=== PATIENT | female | born 1935 | race Caucasian/White ===

== ENCOUNTER 2017-12-31 21:37 | Emergency (ER) | payer OTHER, MEDICARE ==
[~2017-12-31] VITALS: Ht 167.6 cm; Wt 76.7 kg
--- NOTE | ~2017-12-31 | EKG ---
[place] [address] [facility] [place] [address] ELECTROCARDIOGRAM REPORT Name: MARLINE HOPKINS [id number] Admission: 12/31/17 Attend Phys: Discharge: 01/01/18 Date of : 37 Report #: [id number] THIS REPORT FOR: //name// [facility] ED Test Date: 2017-12-31 Test Time: 21:45:55 Pat Name: MARLINE LEOANRD Department: Room: Gender: F Resident Program Specialist: LAUREL : [id number] Requested By: Bereket Ryan Order Number: [id number] MD: Shaun Braga Measurements Intervals [place] Rate: 89 P: 67 [place]: 188 QRS: -37 QRSD: 96 T: 54 QT: 385 QTc: 469 Interpretive Statements Sinus rhythm Atrial premature complexes Abnormal R-wave progression, late transition Left ventricular hypertrophy No previous ECG available for comparison Electronically Signed On 01-01-2018 7:47:20 CDT by Shaun Braga [email or web address] <ELECTRONICALLY SIGNED> By: Shaun Braga MD, [facility] 01/01/18 [id number] Shaun Braga MD, FACC /EPI
[2017-12-31 21:59] LABS: EOSINOPHILS 3.4 % (0.0-3.0); HEMATOCRIT 43.1 % (37.0-47.0); HEMOGLOBIN 14.6 gm/dL (12.0-15.0); MCH 29.6 pg (26.0-34.0); MCHC 33.9 g/dL (28.0-37.0); MCV 87.3 fL (80.0-100.0); PLATELET COUNT 187 thou/uL (150-400); POLYS 70.6 % (36.0-66.0); RBC 4.93 mil/uL (4.20-5.00); RDW 14.7 % (10.5-14.5); WBC 7.1 thou/uL (4.0-11.0)
[2017-12-31 22:09] LABS: ANION GAP 8 mmol/L (7-16); BUN 14 mg/dL (7-18); CALCIUM 9.6 mg/dL (8.5-10.1); CHLORIDE 104 mmol/L (98-107); CO2 26 mmol/L (21-32); CREATININE 0.6 mg/dL (0.6-1.0); GLUCOSE 150 mg/dL (74-106); POTASSIUM 3.5 mmol/L (3.5-5.1); SODIUM 138 mmol/L (136-145)
[2017-12-31 22:19] LABS: ALBUMIN 3.4 g/dL (3.4-5.0); LIPASE 246 U/L (73-393); SGOT 23 U/L (15-37); SGPT 22 U/L (30-65); TOTAL BILIRUBIN 0.4 mg/dL (<0.1-1.0); TOTAL PROTEIN 7.2 g/dL (6.4-8.2); TROPONIN-I < 0.04 ng/mL (<0.06)
[2017-12-31 22:58] LABS: URINE BILIRUBIN NEGATIVE (Negative); URINE BLOOD 1+ (Negative); URINE CLARITY SL CLOUDY; URINE COLOR STRAW; URINE GLUCOSE-RANDOM* TRACE (Negative); URINE KETONES TRACE (Negative); URINE LEUKOCYTES-REFLEX NEGATIVE (Negative); URINE NITRITE-REFLEX NEGATIVE (Negative); URINE PROTEIN (DIPSTICK) NEGATIVE (Negative); URINE UROBILINOGEN 0.2 E.U./dl (0.2-1.0)
[2017-12-31] MEDS ORDERED: NORVASC5 MG PO (23:08)
[2017-12-31] MEDS ORDERED: NEURONTIN600 MG PO (23:08)
[2017-12-31] MEDS ORDERED: CELEBREX 200 M200 M1 PO (23:09)
[2017-12-31] MEDS ORDERED: ZYRTEC10 M5 PO (23:09)
[2017-12-31] MEDS ORDERED: VENLAFAXINE H37.5 M2 PO (23:09)
[2017-12-31] MEDS ORDERED: ASPIR 8181 MG PO (23:09)
[2017-12-31] MEDS ORDERED: ATIVAN0.5 MG PO (23:10)
[2017-12-31] MEDS ORDERED: XALATAN2.5 ML OPHTHALMIC (23:10)
[2017-12-31] MEDS ORDERED: VITAMIN D2000 UNIT PO (23:10)
[2017-12-31] MEDS ORDERED: PRIVIGEN50 ML IV (23:12)
[2017-12-31 23:15] LABS: CASTS None Seen /LPF (None Seen); SQUAMOUS 0-3 Few /LPF (0-3); URINE WBC-REFLEX 0-5 Rare /HPF (0-5)
[2017-12-31 23:16] LABS: AMORPHOUS PHOSPHATES Moderate /LPF (None Seen); BACTERIA-REFLEX 1-9 Few /HPF (None Seen); URINE RBC 3-10 Few /HPF (0-2)
[2017-12-31 23:30] VITALS: BP 154/76
[2018-01-01] MEDS ORDERED: ZOFRAN ODT4 MG PO (00:22)
[2018-01-01] MEDS ORDERED: MACROBID 100 M100 M1 PO (00:22)
== END 2018-01-01 00:26 | disposition home or self-care (01) ==
LOC: ER 21:37
PROVIDERS: Emergency Medicine; Physician Assistant
DX: R11.2 Nausea with vomiting, unspecified (principal); R50.9 Fever, unspecified; I25.2 Old myocardial infarction; I10 Essential (primary) hypertension; Z88.6 Allergy status to analgesic agent; Z88.1 Allergy status to other antibiotic agents; Z88.0 Allergy status to penicillin; Z88.8 Allergy status to other drugs, medicaments and biological substances